=== PATIENT | male | born 1990 | race Caucasian/White ===

== ENCOUNTER 2020-08-23 15:57 | Emergency (ER) | payer SELFPAY ==
[~2020-08-23] VITALS: Ht 182.9 cm; Wt 104.0 kg
[~2020-08-23 15:57] MED LIST: AMOX/K CLAV875 M1 PO; LORTAB5 OR; ROCEPHIN 1 GM1 GM IM
[2020-08-23] MEDS ORDERED: CEPHALEXIN500 M1 PO (16:08)
[2020-08-23 17:15] VITALS: BP 136/85
== END 2020-08-23 17:15 | disposition home or self-care (01) | DRG 605 ==
LOC: ED 15:57
PROC: 0HQLXZZ Repair Left Lower Leg Skin, External Approach (ICD-10-PCS; principal; 2020-08-23)
DX: S81.812A Laceration without foreign body, left lower leg, initial encounter (principal); W26.9XXA Contact with unspecified sharp object(s), initial encounter; Y92.009 Unspecified place in unspecified non-institutional (private) residence as the place of occurrence of the external cause